=== PATIENT | male | born 1965 | race African-American/Black ===

== ENCOUNTER 2022-08-26 17:07 | Emergency (ER) | payer OTHER ==
[~2022-08-26] VITALS: Ht 165.1 cm; Wt 86.0 kg
[2022-08-26 17:14] VITALS: BP 132/80
== END 2022-08-26 20:35 | disposition home or self-care (01) ==
LOC: ER 17:07 → EDBD 17:07 → ER 20:35
DX: G92.9 Unspecified toxic encephalopathy (principal); F10.129 Alcohol abuse with intoxication, unspecified; Y90.0 Blood alcohol level of less than 20 mg/100 ml
CPT/HCPCS: 99283